=== PATIENT | male | born 1985 | race Caucasian/White ===

== ENCOUNTER 2017-12-19 11:15 | Emergency (ER) | payer MEDICAID ==
[~2017-12-19] VITALS: Ht 180.3 cm; Wt 78.0 kg
[~2017-12-19 11:15] MED LIST: NOCURR
[2017-12-19] MEDS ORDERED: PERTUSS(ACELL),DIPH,TET VAC/PF 0.5 ML VIAL IM ONE (12:45)
[2017-12-19] MEDS ORDERED: LIDOCAINE/PF 1% 5 ML VIAL INJ ONE (12:45)
[2017-12-19] MEDS ORDERED: BUPIVACAINE HCL/PF 0.25% 10 ML VIAL INJ ONE (12:45)
[2017-12-19] MEDS ORDERED: BACITRACIN 0.9 GM PACKET OINTMENT TP ONE (13:45)
[2017-12-19 14:20] VITALS: BP 124/80
== END 2017-12-19 14:23 | disposition home or self-care (01) ==
LOC: EMS 11:16
DX: S62.633B Displaced fracture of distal phalanx of left middle finger, initial encounter for open fracture (principal); W23.0XXA Caught, crushed, jammed, or pinched between moving objects, initial encounter; Y93.89 Activity, other specified; Y92.89 Other specified places as the place of occurrence of the external cause; Y99.8 Other external cause status
CPT/HCPCS: 29130; 73140; 90471; 90715; 96372; 99284; J0690; J3490 ×2; 12001